=== PATIENT | female | born 1950 | race Caucasian/White ===

== ENCOUNTER → 2019-10-23 11:45 | Outpatient (BNVA) | payer MEDICARE, OTHER, SELFPAY | PROVIDERS: Family Provider Family Medicine; PCP Family Medicine; Visit Provider Family Medicine | DX: M54.5 Low back pain (principal); I49.9 Cardiac arrhythmia, unspecified; M54.9 Dorsalgia, unspecified; M51.36 Other intervertebral disc degeneration, lumbar region; E78.2 Mixed hyperlipidemia; G89.4 Chronic pain syndrome; F41.9 Anxiety disorder, unspecified | CPT/HCPCS: 80053; 80061; 84443; 85025 ==

== ENCOUNTER → 2020-04-09 09:41 | Outpatient (BNVA) | payer MEDICARE, OTHER, SELFPAY | PROVIDERS: Family Provider Family Medicine; PCP Family Medicine; Visit Provider Family Medicine | DX: E78.5 Hyperlipidemia, unspecified (principal) | CPT/HCPCS: 80053; 80061; 85025 ==

== ENCOUNTER → 2020-09-24 10:30 | Outpatient (BNVA) | payer MEDICARE, OTHER, SELFPAY | PROVIDERS: Family Provider Family Medicine; PCP Family Medicine; Visit Provider Family Medicine | DX: I49.9 Cardiac arrhythmia, unspecified (principal); M51.36 Other intervertebral disc degeneration, lumbar region; I10 Essential (primary) hypertension; E78.2 Mixed hyperlipidemia; F41.9 Anxiety disorder, unspecified; Z68.20 Body mass index [BMI] 20.0-20.9, adult; F17.210 Nicotine dependence, cigarettes, uncomplicated | CPT/HCPCS: 80053; 80061; 84443; 85025 ==

== ENCOUNTER 2021-03-28 07:12 | Outpatient (CLI) | payer MEDICARE, OTHER, SELFPAY ==
--- NOTE | 2021-03-28 07:15 | US_ITS ---
WS: [id number] Complete ABDOMINAL ULTRASOUND HISTORY: ruq pain COMPARISON: None available. Liver: 14.2 cm in length. Liver is top normal size. Mildly coarsened echotexture. No mass identified. No duct dilatation. Gallbladder: Abnormal gallbladder. Diffuse thickened wall with increased echogenicity. Wall measures 4 mm. Stones and sludge are present within the gallbladder. No pericholecystic fluid. Gallbladder wall thickness: 0.4 cm. Pancreas: Poorly visualized. CBD: 1.2 cm. Right kidney: 10.3 cm x 4.4 cm x 3.4 cm. No mass, cortical thickening or hydronephrosis. Left kidney: 9.0 cm x 5.0 cm x 4.2 cm. No mass, cortical thickening or hydronephrosis. Spleen: Normal size and echogenicity. Abdominal aorta and IVC are within normal limits. No ascites. US/US abdomen complete* [id number] IMPRESSION: 1. Suspect acute cholecystitis with stones and sludge. 2. Dilated common bile duct. Choledocholithiasis should be considered as a pos sible etiology. Pancreas and the pancreatic head are not well visualized. Addit ional imaging to be considered are MRCP and CT abdomen and pelvis with IV contr ast.
== END 2021-03-28 07:13 | disposition home or self-care (01) ==
PROVIDERS: PCP Family Medicine; Visit Provider Family Medicine
DX: R10.11 Right upper quadrant pain (principal)
CPT/HCPCS: 76700

== ENCOUNTER 2021-04-17 08:33 | Outpatient (CLI) | payer MEDICARE, OTHER, SELFPAY ==
--- NOTE | 2021-04-17 08:45 | MR_ITS ---
WS: [id number] MRCP (MAGNETIC RESONANCE CHOLANGIOPANCREATOGRAPHY) HISTORY: K83.8 - Other specified diseases of biliary tract, RIGHT upper quadrant pain for 8 weeks. COMPARISON: 03/28/2021 and 09/24/2015 TECHNIQUE: Multiple sequences are performed to evaluate the intra and extrahepatic ducts. There is mild diffuse dilatation of the common bile duct to the duodenum. Diameter measures up to 12 mm. No filling defects are evident. There is also no central bile duct dilatation. Pancreatic duct is normal caliber. Gallbladder is abnormal. There is diffuse wall thickening with filling defects in the lumen consisten t with cholelithiasis. This is been previously described. Visualized liver appears mildly prominent. No ascites identified. Spleen is normal size. MR/MR MRCP [id number] IMPRESSION: 1. Continued mild dilatation of the common bile duct. No filling defect or mas s identified. Differentials to consider are stricture near the ampulla of Vater . Also this may be a very mild form of a choledochal cyst. 2. Abnormal gallbladder. Cholelithiasis with gallbladder wall thickening which has been previously described.
== END 2021-04-17 08:34 | disposition home or self-care (01) ==
LOC: RADSHAW 08:39
PROVIDERS: PCP Family Medicine; Visit Provider Surgery
DX: K83.8 Other specified diseases of biliary tract (principal); K80.20 Calculus of gallbladder without cholecystitis without obstruction
CPT/HCPCS: 74181

== ENCOUNTER → 2021-04-23 11:14 | Outpatient (BNVA) | payer MEDICARE, OTHER, SELFPAY | PROVIDERS: PCP Family Medicine; Visit Provider Surgery | DX: Z01.812 Encounter for preprocedural laboratory examination (principal); Z20.822 Contact with and (suspected) exposure to COVID-19 | CPT/HCPCS: 87635 ==

== ENCOUNTER 2021-04-28 08:22 | Day surgery (SDC) | payer MEDICARE, OTHER, SELFPAY ==
[2021-04-25 10:04] VITALS: BMI 20.5
[2021-04-28] VITALS (7 sets, daily range): BP systolic 124–184; BP diastolic 86–97; PULSE 70–96; RESP 18–25; TEMP 36.1–36.3; O2SAT 91–99
--- NOTE | 2021-04-28 | SCC_ITS ---
Procedure Done: 1. Laparoscopic cholecystectomy 2. Intraoperative cholangiogram 9.2 seconds of fluoroscopic guidance, for a cumulative dose of 15.49 mGy, was provided to Dr. Melendez by the radiology department. C-arm images of the abdomen were saved for the patient's permanent record. [facility]
--- NOTE | 2021-04-28 | XR_ITS ---
WS: [id number] C-ARM RADIOGRAPHS INTRAOPERATIVE CHOLANGIOGRAM; 6 IMAGES HISTORY: OR PICS COMPARISON: MRCP 04/17/2021. Injection of the common bile duct is performed intraoperatively by Dr. Melendez. There is moderate dila tation of the entire common bile duct. There is rapid filling of small bowel therefore there is no co mplete obstruction. Common bile duct at the pancreatic head does not taper but also there is no compl ete occlusion. XR/XR cholangio operative [id number] IMPRESSION: Dilated common bile duct without an occlusion. There is an abrupt tapering of t he common bile duct but no filling defect was evident.
--- NOTE | 2021-04-28 08:18 | W.PM.OPSUD ---
Surgery/Procedure H&P Update DATE OF PROCEDURE: April 28, 2021 DATE H&P PERFORMED: 04/15/21 H&P UPDATE INFORMATION: I have reviewed H&P completed within last 30 days, I have examined patient prior to procedure and No changes to prior documentation PLANNED PROCEDURE: Operation Date: 04/28/21 09:45 Proposed Procedures p Laparoscopic Cholecystectomy with intrao cholanagiogram 51496 [id number] K80.20(Not Applicable) - Rodolfo Melendez MD
[2021-04-28] MEDS: sodium chloride 0.9% 1,000 ML 30 ML IV (08:55)
--- NOTE | 2021-04-28 09:00 | ANES.PREANE2 ---
Pre-Anesthetic Assessment Pre-Anesthetic Assessment: Height/Weight: Height 1.63 m Weight 54.431 kg Temp Pulse Resp BP Pulse Ox 97.3 F L 74 18 124/88 97 04/28/21 08:40 04/28/21 08:40 04/28/21 08:40 04/28/21 08:40 04/28/21 08:40 Preop Diagnosis: cholelithiasis Proposed Procedure: Operation Date: 04/28/21 09:45 Proposed Procedures p Laparoscopic Cholecystectomy with intrao cholanagiogram 09611 [id number] K80.20(Not Applicable) - Rodolfo Melendez MD Was Beta Brain taken within 24 hours: Yes Was Clonidine taken within 24 hours: N/A Last intake: Intake Last Liquid Date 04/27/21 Last Liquid Time 21:00 Last Solid Date 04/27/21 Last Solid Time 21:00 Exam: Pre-Anes Outpt Exam: alert, oriented x 3 and clear to auscultation bilaterally (distant) Airway: Submandibular: WNL Cervical ROM: WNL MP: 1 Dentition: False History/ROS: No significant complaints Pulmonary: Pulmonary: None reported CV/HEM: CV/HEM: None reported : : None reported Hepatic: Hepatic: None reported GI: GI: None reported Neuropsych: Neuropsych: None reported Anesthetic Plan: ASA status: 2 Anesthesia: Anesthesia Evaluation and General Meds/Allergies Current Medications: Current Medications Generic Name Dose Route Start Last Admin Trade Name Freq PRN Reason Stop Dose Admin Sodium Chloride 1,000 mls @ 30 ml s/hr 04/28/21 08:30 04/28/21 08:55 Sodium Chloride 0.9% IV 04/29/21 08:29 30 mls/hr .Q24H PJ Administration PFSH Anesthesia PFSH: Medical History Anxiety Degenerative disc disease Hepatitis C Hyperlipidemia Surgical History History of colonoscopy with polypectomy (~2015) History of hand surgery Hx of tubal ligation Family History Other Cancer Social History Alcohol intake: never Lives independently: Yes Data Anesthesia Cardiac Studies: No Data to Display
--- NOTE | 2021-04-28 10:47 | PM.OP ---
Operative Report Date of procedure: April 28, 2021 Pre-op Diagnosis: 1. Cholelithiasis 2. Dilated CBD, normal LFT Post-op Findings: 1. cholelithiasis with chronic cholecystitis with thickened gallbladder wall 2. Dilated CBD with drainage of contrast into the duodenum, the right and left hepatic ducts could not be well-visualized Procedure Done: 1. Laparoscopic cholecystectomy 2. Intraoperative cholangiogram Specimens removed/disposition: Gallbladder Surgeon: Rodolfo Melendez Anesthesia: General Condition: stable Disposition: PACU Procedure: The patient was taken to the operating room and was intubated under general anesthesia. After the antibiotic had been administered, the abdomen was prepped and draped in a sterile manner. Using a #15 blade, a 1 centimeter infraumbilical curvilinear incision was made and using an open Rober technique the peritoneal cavity was entered. A 10 millimeter port was placed and 15 millimeters of pneumoperitoneum was created. A 10 millimeter, 30 degrees scope was then introduced. Three 5 millimeter ports were placed in the epigastric, midclavicular and the anterior axillary line two fingerbreadths below the costal margin on the right side under the direct visualization. Ratcheted forceps were introduced into the lateral most port and was used to retract the fundus of the gallbladder cephalad and using forceps the infundibulum of the gallbladder was retracted laterally. The gallbladder was thickened and packed with stones. Using L-hook cautery the peritoneum overlying the Calot's triangle was opened medially and laterally until the cystic duct and the cystic artery were skeletonized. After the cystic duct had been skeletonized an Arrow cholangiogram catheter introducer needle was introduced in the right subcostal space, trocar was removed and the cholangiogram catheter was introduced. Using laparoscopic scissors, opening was made in the cystic duct and the cholangiogram catheter was introduced, balloon inflated and catheter held in place with a 10 mm clip. Saline was flushed initially without any difficulty and then a cholangiogram was performed using 50: 50 Omnipaque. A dilated CBD was identified measuring about a centimeter in width. The contrast drained easily into the duodenum though the right and left hepatic ducts could not be well-visualized. Dissection was carried along the body of the gallbladder and after ensuring critical view of safety, 4 clips applied on the cystic duct and 3 clips applied on the cystic artery and cut leaving, 3 clips on the remaining portion of the duct and 2 clips on the remaining portion of the artery. The rest of the gallbladder was dissected off the liver using L-hook cautery. There was no bleeding or bile leaking noted from the gallbladder fossa and the clips appeared to be in place. An EndoCatch bag was introduced to remove the gallbladder. All the ports were removed under direct visualization and there was no bleeding noted from the port sites. The fascia of the umbilicus was closed using [id number] 0 Vicryl sutures and the subcutaneous tissue was approximated using 3-0 Vicryl sutures. The skin at all four ports were closed using 4-0 Monocryl and Dermabond. A total of 10 millimeters of 0.5% Marcaine was infiltrated around the port sites. The patient was stable throughout the procedure.
[2021-04-28] MEDS: HYDROcodone-acetaminophen 5-325 mg Tablet 1 TAB PO (11:48)
--- NOTE | 2021-04-28 16:36 | ANE.PACU2 ---
Inpatient post-anesthesia follow up: Airway intact: Yes Vital signs: Temperature 97 F Pulse Rate 70 Respiratory Rate 18 Blood Pressure 165/86 Pulse Oximetry 94 Oxygen Delivery Me thod Room Air Oxygen Flow Rate 8 Fraction of Inspir ed Oxygen Hydration adequate: Yes Nausea and vomiting: No Pain level: 2 Mental status: Baseline
== END 2021-04-28 12:09 | disposition home or self-care (01) ==
PROVIDERS: PCP Family Medicine; Visit Provider Surgery
PROC: 0FT44ZZ Resection of Gallbladder, Percutaneous Endoscopic Approach (ICD-10-PCS; CPT 47562; principal; 2021-04-28 09:40)
DX: K81.1 Chronic cholecystitis (principal); F41.9 Anxiety disorder, unspecified; M19.90 Unspecified osteoarthritis, unspecified site; E78.5 Hyperlipidemia, unspecified; Z86.19 Personal history of other infectious and parasitic diseases
CPT/HCPCS: 47562; 74300; 76000; 88304; 96365; J1100; J2405; J2704; J2710; J3010; J3490; J7030

== ENCOUNTER → 2021-05-06 09:54 | Outpatient (BNVA) | payer MEDICARE, OTHER, SELFPAY | PROVIDERS: PCP Family Medicine; Visit Provider Family Medicine | DX: I49.9 Cardiac arrhythmia, unspecified (principal); M54.9 Dorsalgia, unspecified; M51.36 Other intervertebral disc degeneration, lumbar region; E78.2 Mixed hyperlipidemia; F41.9 Anxiety disorder, unspecified; I10 Essential (primary) hypertension | CPT/HCPCS: 80053; 80061; 84443; 85025 ==

== ENCOUNTER → 2021-06-03 10:43 | Outpatient (BNVA) | payer MEDICARE, OTHER, SELFPAY | PROVIDERS: PCP Family Medicine; Visit Provider Internal Medicine | DX: Z20.822 Contact with and (suspected) exposure to COVID-19 (principal); Z01.812 Encounter for preprocedural laboratory examination; Z80.0 Family history of malignant neoplasm of digestive organs | CPT/HCPCS: 87635 ==

== ENCOUNTER → 2021-06-18 08:16 | Outpatient (BNVA) | payer MEDICARE, OTHER, SELFPAY | PROVIDERS: PCP Family Medicine; Visit Provider Internal Medicine | DX: Z20.822 Contact with and (suspected) exposure to COVID-19 (principal); Z01.812 Encounter for preprocedural laboratory examination; Z80.0 Family history of malignant neoplasm of digestive organs | CPT/HCPCS: 87635 ==

== ENCOUNTER 2021-06-23 06:38 | Day surgery (SDC) | payer MEDICARE, OTHER, SELFPAY ==
[2021-06-05 14:59] VITALS: BMI 20.5
--- NOTE | 2021-06-23 07:04 | ANES.PREANE2 ---
Pre-Anesthetic Assessment Pre-Anesthetic Assessment: Height/Weight: Height 1.63 m Weight 54.431 kg Preop Diagnosis: cholelithiasis Proposed Procedure: Operation Date: 06/23/21 07:30 Proposed Procedures p Colonoscopy 62360 Z80.0(Not Applicable) - Iván Chen MD Familial anesthetic complications: none Was Beta Brain taken within 24 hours: Yes Was Clonidine taken within 24 hours: N/A Last intake: Intake Last Liquid Date 06/21/21 Last Solid Date 06/22/21 Last Solid Time 21:00 Last Intake: 20:30 Social: Social History: Tobacco (stop last Month) and No alcohol Packs per day: 1 ppd Pack years: 57 Exam: Pre-Anes Outpt Exam: alert, oriented x 3, clear to auscultation bilaterally and regular rate & rhythm Airway: Submandibular: WNL Cervical ROM: WNL MP: 2 Dentition: False Pulmonary: Pulmonary: Asthma, COPD and TONEY CV/HEM: CV/HEM: HTN (tachy) : : None reported Hepatic: Hepatic: None reported GI: GI: None reported Metabolic: Metabolic: None reported Musc/skel: Musc/skel: Lower Back Pain and OA/DJD Neuropsych: Neuropsych: Anxiety and Depression Anesthetic Plan: ASA status: 2 Anesthesia: MAC PFSH Anesthesia PFSH: Medical History Anxiety Degenerative disc disease Hepatitis C Hyperlipidemia Surgical History History of colonoscopy with polypectomy (~2015) History of hand surgery Hx of tubal ligation Status post laparoscopic cholecystectomy (04/28/21) Family History Other Cancer Social History Smoking and tobacco status: current every day smoker Alcohol intake: never Lives independently: Yes Data Anesthesia Cardiac Studies: No Data to Display
[2021-06-23] MEDS: sodium chloride 0.9% 1,000 ML 30 ML IV (07:06)
[2021-06-23 07:08] VITALS: BP 146/90; PULSE 97; RESP 18; O2SAT 97
--- NOTE | 2021-06-23 07:31 | W.PM.OPSFHP ---
Same Day Surgery H&P Indication for Procedure/HPI DATE OF PROCEDURE: June 23, 2021 CHIEF COMPLAINT/INDICATIONFOR SURGICAL PROCEDURE: Family history of colon cancer PREOP DIAGNOSIS: cholelithiasis PLANNED PROCEDRUE: Operation Date: 06/23/21 07:30 Proposed Procedures p Colonoscopy 97995 Z80.0(Not Applicable) - Iván Chen MD Medications/Allergies* Home Medications Medication Instructions Recorded Confirmed Type Aspir-81 81 mg PO DAILY 04/25/21 06/19/21 History Vitamin D (with calcium) 2,000 mg PO DAILY 06/05/21 06/19/21 History ascorbic acid (vitamin C) [Vitamin 1,000 mg PO PRN PRN 06/05/21 06/19/21 History C] biotin 5,000 mcg SUBLINGUAL DAILY 06/05/21 06/19/21 History [id number] 1 cap PO DAILY 06/05/21 06/19/21 History [krill oil] milk thistle 500 mg PO BID 06/05/21 06/19/21 History Allergies/Adverse Reactions Allergy/AdvReac Type Severity Reaction Status Date / Time No Known Allergies Allergy Verified 06/23/21 06:53 Current Medications: Generic Name Dose Route Start Last Admin Trade Name Freq PRN Reason Stop Dose Admin Sodium Chloride 1,000 mls @ 30 mls/hr 06/23/21 07:15 06/23/21 07:06 Sodium Chloride 0.9% IV 06/24/21 07:14 30 mls/hr .Q24H PJ Administration Pertinent History/Comorbid Conditions* Medical History (Updated 05/27/21 @ 11:24 by Iván Chen MD) Anxiety Degenerative disc disease Hepatitis C Hyperlipidemia Surgical History (Updated 05/09/21 @ 09:27 by Rodolfo Melendez MD) History of colonoscopy with polypectomy (~2015) History of hand surgery Hx of tubal ligation Status post laparoscopic cholecystectomy (04/28/21) Family History (Updated 08/17/19 @ 11:11 by Felicita Westbrook LPN) Cancer Social History Smoking and tobacco status: current every day smoker Alcohol intake: never Lives independently: Yes Pertinent Exam Findings alert, oriented x 3, clear to auscultation bilaterally, regular rate & rhythm, operative site marked and procedure specific exam findings Recommendations Surgery/Procedure today Coding Level of Care Code Acute Special Agent for Chg Fwtj
[2021-06-23 07:51] VITALS: BP 106/74; PULSE 71; RESP 16; TEMP 36.1; O2SAT 95
[2021-06-23 08:09] VITALS: BP 111/79; PULSE 80; RESP 18; O2SAT 96
--- NOTE | 2021-06-23 14:52 | ANE.PACU2 ---
Inpatient post-anesthesia follow up: Airway intact: Yes Vital signs: Temperature 97 F Pulse Rate 80 Respiratory Rate 18 Blood Pressure 111/79 Pulse Oximetry 96 Oxygen Delivery Me thod Room Air Oxygen Flow Rate 2 Fraction of Inspir ed Oxygen Hydration adequate: Yes Nausea and vomiting: No Pain level: 2 Mental status: Baseline
== END 2021-06-23 08:20 | disposition home or self-care (01) ==
PROVIDERS: PCP Family Medicine; Visit Provider Internal Medicine
PROC: 0DJD8ZZ Inspection of Lower Intestinal Tract, Via Natural or Artificial Opening Endoscopic (ICD-10-PCS; CPT 45378; principal; 2021-06-23 07:30)
DX: Z12.11 Encounter for screening for malignant neoplasm of colon (principal); Z80.0 Family history of malignant neoplasm of digestive organs; F17.200 Nicotine dependence, unspecified, uncomplicated; Z90.49 Acquired absence of other specified parts of digestive tract; Z86.19 Personal history of other infectious and parasitic diseases; Z79.82 Long term (current) use of aspirin; Z98.51 Tubal ligation status; K80.20 Calculus of gallbladder without cholecystitis without obstruction
CPT/HCPCS: 45378; 96360; G0121; J2704; J7030

== ENCOUNTER → 2021-10-03 08:39 | Outpatient (BNVA) | payer MEDICARE, OTHER, SELFPAY | PROVIDERS: PCP Family Medicine; Visit Provider Thoracic Surgery (Cardiothoracic Vascular Surgery) | DX: I83.813 Varicose veins of bilateral lower extremities with pain (principal); Z87.891 Personal history of nicotine dependence; Z79.82 Long term (current) use of aspirin | CPT/HCPCS: 99203 ==

== ENCOUNTER → 2021-10-21 12:12 | Outpatient (BNVA) | payer MEDICARE, OTHER, SELFPAY | PROVIDERS: PCP Family Medicine; Visit Provider Family Medicine | DX: I10 Essential (primary) hypertension (principal); E78.2 Mixed hyperlipidemia; E55.9 Vitamin D deficiency, unspecified | CPT/HCPCS: 80053; 80061; 82306; 84443; 85025 ==

== ENCOUNTER 2021-10-31 12:01 | Outpatient (CLI) | payer MEDICARE, OTHER, SELFPAY ==
--- NOTE | 2021-10-31 11:15 | USCV_ITS ---
Liz Linder Age: 71 Gender: F : 1950 Exam Date: 10/31/2021 12:16 Ordering Phys: Curly Blanton MD (Andy) ([email or web address]) Technologist: [place] [facility] [place]: HISTORY: PROCEDURES: Bilateral duplex Venous Insufficiency study of the Deep and Superficial systems was carried out according to normal protocol with the patient in supine positon for deep system and dependent position for the superficial system. FINDINGS: All deep veins demonstrated compressibility without evidence of intraluminal thrombus or increased echogenicity. Spectral analysis of Doppler signals demonstrates normal response to compression maneuvers indicating patency without obstruction. Reflux determinations were made with the patient in the dependent position, the weight being on the contralateral leg. There is significant reflux in the rt gsaph distal. The patient is not a good canidate for ablation do to small vessel diameter and superfical location CONCLUSIONS 1. No evidence of DVT in the above-mentioned identifiable veins. 2. No significant deep venous reflux. 3. Significant reflux of greater than 500 ms were noted in the right distal greater saphenous and below-knee greater saphenous vein segments. However these venous segments were found to be very superficial and relatively of small caliber. 4. No significant venous reflux on the left side. The venous dimensions, depth from the surface and reflux times are as seen in the attached sheet. Dr Kelvin Sanford MD [facility] (Electronically Signed) Final Date: 03 November 2021 22:56 S
== END 2021-10-31 12:02 | disposition home or self-care (01) ==
LOC: RAD 12:04
PROVIDERS: PCP Family Medicine; Visit Provider Thoracic Surgery (Cardiothoracic Vascular Surgery)
DX: I83.813 Varicose veins of bilateral lower extremities with pain (principal)
CPT/HCPCS: 93970

== ENCOUNTER → 2021-11-07 10:06 | Outpatient (BNVA) | payer MEDICARE, OTHER, SELFPAY | PROVIDERS: PCP Family Medicine; Visit Provider Thoracic Surgery (Cardiothoracic Vascular Surgery) | DX: I83.813 Varicose veins of bilateral lower extremities with pain (principal); Z87.891 Personal history of nicotine dependence | CPT/HCPCS: 99212 ==

== ENCOUNTER → 2022-01-13 12:46 | Outpatient (BNVA) | payer MEDICARE, OTHER, SELFPAY | PROVIDERS: PCP Family Medicine; Visit Provider Family Medicine | DX: M51.36 Other intervertebral disc degeneration, lumbar region (principal); E55.9 Vitamin D deficiency, unspecified; E78.2 Mixed hyperlipidemia; F41.9 Anxiety disorder, unspecified; I10 Essential (primary) hypertension; L30.9 Dermatitis, unspecified | CPT/HCPCS: 80053; 80061; 82306; 84443; 85025 ==

== ENCOUNTER → 2022-06-29 16:12 | Outpatient (BNVA) | payer MEDICARE, OTHER, SELFPAY | PROVIDERS: PCP Family Medicine; Visit Provider Family Medicine | DX: M51.36 Other intervertebral disc degeneration, lumbar region (principal); E55.9 Vitamin D deficiency, unspecified; E78.2 Mixed hyperlipidemia; F41.9 Anxiety disorder, unspecified; I10 Essential (primary) hypertension; J44.9 Chronic obstructive pulmonary disease, unspecified | CPT/HCPCS: 80053; 80061; 82306; 84443; 85025 ==

== ENCOUNTER → 2022-10-13 10:41 | Outpatient (BNVA) | payer MEDICARE, OTHER, SELFPAY | PROVIDERS: PCP Family Medicine; Visit Provider Family Medicine | DX: R10.11 Right upper quadrant pain (principal); R19.7 Diarrhea, unspecified | CPT/HCPCS: 87493; 87506 ==

== ENCOUNTER → 2022-10-15 10:39 | Outpatient (BNVA) | payer MEDICARE, OTHER, SELFPAY | PROVIDERS: PCP Family Medicine; Visit Provider Family Medicine | DX: M51.36 Other intervertebral disc degeneration, lumbar region (principal); E55.9 Vitamin D deficiency, unspecified; E78.2 Mixed hyperlipidemia; I10 Essential (primary) hypertension; I49.9 Cardiac arrhythmia, unspecified; R19.7 Diarrhea, unspecified; R10.11 Right upper quadrant pain | CPT/HCPCS: 80053; 80061; 82306; 84443 ==

== ENCOUNTER → 2022-12-22 09:18 | Outpatient (BNVA) | payer MEDICARE, OTHER, SELFPAY | PROVIDERS: PCP Family Medicine; Visit Provider Family Medicine | DX: M54.50 Low back pain, unspecified (principal); N39.0 Urinary tract infection, site not specified | CPT/HCPCS: 81003; 87077; 87086; 87184 ==

== ENCOUNTER → 2023-03-18 10:10 | Outpatient (BNVA) | payer MEDICARE, OTHER, SELFPAY | PROVIDERS: PCP Family Medicine; Visit Provider Family Medicine | DX: E55.9 Vitamin D deficiency, unspecified (principal); E78.2 Mixed hyperlipidemia; I10 Essential (primary) hypertension; F41.9 Anxiety disorder, unspecified; M51.36 Other intervertebral disc degeneration, lumbar region; R11.0 Nausea | CPT/HCPCS: 80053; 80061; 82306 ==

== ENCOUNTER 2023-04-23 09:13 | Outpatient (CLI) | payer MEDICARE, OTHER, SELFPAY ==
--- NOTE | 2023-04-23 09:21 | XR_ITS ---
WS: [email or web address] XR shoulder RT min 2V* [id number] REASON FOR EXAM: M25.511 - Pain in right shoulder FINDINGS: No fracture or focal bone lesion. Moderate narrowing of the acromioclavicular joint with mild to moderate subchondral sclerosis and ost eophytosis. The glenohumeral joint space is not optimally demonstrated. Likely there is mild narrowing. There is mild subchondral sclerosis in the glenoid. Moderate sclerosis and cystic change in the greater tuberosity. Calcifications in the right axilla are likely calcified lymph nodes. Previous calcific tendinosis, likely biceps tendon, has resolved since the examination of 04/11/2019. No other significant interval change compared to that previous study. IMPRESSION: Mild osteoarthritis of the acromioclavicular and glenohumeral joints as above.
--- NOTE | 2023-04-23 09:21 | XR_ITS ---
WS: [email or web address] XR hip LT 2-3V wo/w pel* [id number] REASON FOR EXAM: M25.552 - Pain in left hip FINDINGS: No fracture or focal bone lesion. Mild narrowing of the joint space with moderate subchondral sclerosis of the acetabulum. Mild/moderat e osteophytosis of the femoral head. No abnormality in the adjacent soft tissues. IMPRESSION: Moderate osteoarthritis of the left hip.
== END 2023-04-23 09:14 | disposition home or self-care (01) ==
PROVIDERS: PCP Family Medicine; Visit Provider Family Medicine
DX: M19.011 Primary osteoarthritis, right shoulder (principal); M16.12 Unilateral primary osteoarthritis, left hip
CPT/HCPCS: 73030; 73502

== ENCOUNTER → 2023-12-02 11:51 | Outpatient (BNVA) | payer MEDICARE, OTHER, SELFPAY | PROVIDERS: PCP Family Medicine; Visit Provider Nurse Practitioner Family | DX: L03.90 Cellulitis, unspecified (principal); M79.641 Pain in right hand; M79.89 Other specified soft tissue disorders; Z23 Encounter for immunization; L03.113 Cellulitis of right upper limb; S60.551A Superficial foreign body of right hand, initial encounter; X58.XXXA Exposure to other specified factors, initial encounter | CPT/HCPCS: 80053; 85025 ==

== ENCOUNTER 2023-12-03 13:53 | Outpatient (CLI) | payer MEDICARE, OTHER, SELFPAY ==
--- NOTE | 2023-12-03 14:01 | XR_ITS ---
WS: [id number] XR hand RT min 3V* [id number] REASON FOR EXAM: swelling, pain, possible splinter FINDINGS: No fracture or significant focal bone lesion. Small bony exostosis from the lateral aspect of the dis tatiana extent of the proximal phalanx of the index finger. No periosteal reaction or bone erosion. Mild narrowing of the joint space with mild subchondral sclerosis and marginal osteophytosis in the D IP joints of the fingers and thumb. Similar arthropathy in the PIP joint of the fifth finger and the MCP joint of the middle finger with mild subluxation. Similar arthropathic change in the 3 joints of the thumb. No soft tissue abnormality. XR/XR hand RT min 3V* [id number] IMPRESSION: Moderate osteoarthritis
== END 2023-12-03 13:54 | disposition home or self-care (01) ==
LOC: RAD 13:55
PROVIDERS: PCP Family Medicine; Visit Provider Nurse Practitioner Family
DX: M19.041 Primary osteoarthritis, right hand (principal); M79.641 Pain in right hand; M79.89 Other specified soft tissue disorders
CPT/HCPCS: 73130